=== PATIENT | male | born 1955 | race Caucasian/White ===

== ENCOUNTER 2019-11-01 07:59 | Emergency (ER) | payer OTHER ==
[~2019-11-01] VITALS: Ht 177.8 cm; Wt 81.8 kg
[2019-11-01] MEDS ORDERED: OLAN10TA6 PO ×2 (08:20)
[2019-11-01 08:41] LABS: BASOPHILS % (AUTO) 0.4 % (0.0-2.0); EOSINOPHILS % (AUTO) 0.2 % (1.0-6.0); HEMATOCRIT 40.6 % (41-53); HEMOGLOBIN 14.2 g/dL (13.5-17.5); LYMPHOCYTES # (AUTO) 1.4 K/uL (1.0-4.8); LYMPHOCYTES % (AUTO) 23.8 % (22.0-44.0); MEAN CORPUSCULAR HEMOGLOBIN 30.7 pg (26.0-34.0); MEAN CORPUSCULAR HGB CONC 34.8 G/dL (31.0-37.0); MEAN CORPUSCULAR VOLUME 88 fL (80-100); MONOCYTES # (AUTO) 0.5 K/uL (0.1-1.0); MONOCYTES % (AUTO) 8.1 % (2.0-9.0); NEUTROPHILS # (AUTO) 4.1 K/uL (1.8-7.7); NEUTROPHILS % (AUTO) 67.5 % (40.0-70.0); PLATELET COUNT (AUTO) 393 K/uL (150-450); RED BLOOD CELL COUNT(AUTO) 4.62 MIL/uL (4.50-5.90); RED CELL DISTRIBUTION WIDTH 12.9 % (11.5-14.5)
[2019-11-01 08:50] LABS: ANION GAP 8 mmol/L (8-16); CALCIUM, TOTAL 8.8 mg/dL (8.8-10.5); CARBON DIOXIDE 25 mmol/L (22-29); CHLORIDE 102 mmol/L (98-107); CREATININE 1.05 mg/dL (0.60-1.30); GLOMERULAR FILTR. RATE CALC > 60 mL/min (>60); GLUCOSE,RANDOM 121 mg/dL (70-110); POTASSIUM 3.9 mmol/L (3.5-5.1); SODIUM SERUM 135 mmol/L (136-145); UREA NITROGEN, BLOOD 18 mg/dL (7-18)
[2019-11-01 08:55] LABS: ALANINE AMINOTRANSFERASE 42 U/L (12-78); ALBUMIN 3.5 g/dL (3.4-5.0); ALKALINE PHOSPHATASE 78 U/L (46-116); ASPARTATE AMINOTRANSFERASE 19 U/L (15-37); BILIRUBIN,TOTAL 0.3 mg/dL (0.1-1.0); TOTAL PROTEIN, SERUM 7.6 g/dL (6.4-8.2)
[2019-11-01 09:06] LABS: AMPHET/METH SCREEN,URINE NEGATIVE (NEGATIVE); BARBITURATE SCREEN, URINE NEGATIVE (NEGATIVE); BENZODIAZEPINES SCREEN,URINE NEGATIVE (NEGATIVE); CANNABINOID SCREEN,URINE NEGATIVE (NEGATIVE); COCAINE SCREEN,URINE NEGATIVE (NEGATIVE); METHADONE SCREEN, URINE NEGATIVE (NEGATIVE); OPIATE SCREEN,URINE NEGATIVE (NEGATIVE); PHENCYCLIDINE SCREEN,URINE NEGATIVE (NEGATIVE)
[2019-11-01] MEDS ORDERED: OLANZapine 5 MG TABLET PO ONE (11:00)
[2019-11-01 12:01] VITALS: BP 148/64
== END 2019-11-01 12:53 | disposition home or self-care (01) ==
LOC: EMS 08:01
DX: F20.9 Schizophrenia, unspecified (principal); F31.9 Bipolar disorder, unspecified; Z79.899 Other long term (current) drug therapy
CPT/HCPCS: 36415; 80053; 80307; 85025; 99284; G0480

== ENCOUNTER 2020-01-11 11:41 | Inpatient (IN) | payer MEDICAID, OTHER ==
[~2020-01-11] VITALS: Ht 175.3 cm; Wt 93.0 kg
[~2020-01-11 11:41] MED LIST: OLAN10TA6 PO
[2020-01-11 12:05] LABS: BASOPHILS % (AUTO) 0.7 % (0.0-2.0); EOSINOPHILS % (AUTO) 1.3 % (1.0-6.0); HEMATOCRIT 43.6 % (41-53); HEMOGLOBIN 14.9 g/dL (13.5-17.5); LYMPHOCYTES # (AUTO) 1.6 K/uL (1.0-4.8); LYMPHOCYTES % (AUTO) 32.8 % (22.0-44.0); MEAN CORPUSCULAR HEMOGLOBIN 30.1 pg (26.0-34.0); MEAN CORPUSCULAR HGB CONC 34.1 G/dL (31.0-37.0); MEAN CORPUSCULAR VOLUME 88 fL (80-100); MONOCYTES # (AUTO) 0.5 K/uL (0.1-1.0); MONOCYTES % (AUTO) 9.6 % (2.0-9.0); NEUTROPHILS # (AUTO) 2.7 K/uL (1.8-7.7); NEUTROPHILS % (AUTO) 55.6 % (40.0-70.0); PLATELET COUNT (AUTO) 333 K/uL (150-450); RED BLOOD CELL COUNT(AUTO) 4.94 MIL/uL (4.50-5.90); RED CELL DISTRIBUTION WIDTH 13.3 % (11.5-14.5)
[2020-01-11 12:18] LABS: ANION GAP 8 mmol/L (8-16); CALCIUM, TOTAL 9.6 mg/dL (8.8-10.5); CARBON DIOXIDE 26 mmol/L (22-29); CHLORIDE 103 mmol/L (98-107); CREATININE 0.94 mg/dL (0.60-1.30); GLOMERULAR FILTR. RATE CALC > 60 mL/min (>60); GLUCOSE,RANDOM 107 mg/dL (70-110); POTASSIUM 4.2 mmol/L (3.5-5.1); SODIUM SERUM 137 mmol/L (136-145); UREA NITROGEN, BLOOD 9 mg/dL (7-18)
[2020-01-11 12:24] LABS: ALANINE AMINOTRANSFERASE 21 U/L (12-78); ALBUMIN 4.1 g/dL (3.4-5.0); ALKALINE PHOSPHATASE 64 U/L (46-116); ASPARTATE AMINOTRANSFERASE 13 U/L (15-37); BILIRUBIN,TOTAL 0.3 mg/dL (0.1-1.0); TOTAL PROTEIN, SERUM 7.9 g/dL (6.4-8.2)
[2020-01-11 13:08] LABS: APPEARANCE,URINE CLEAR (CLEAR); BILIRUBIN,URINE NEGATIVE (NEGATIVE); GLUCOSE, URINE (UA) NEGATIVE (NEGATIVE); KETONES,URINE NEGATIVE (NEGATIVE); LEUKOCYTE ESTERASE ,URINE NEGATIVE (NEGATIVE); NITRATE,URINE NEGATIVE (NEGATIVE); OCCULT BLOOD,URINE NEGATIVE (NEGATIVE); PROTEIN,URINE NEGATIVE (NEGATIVE); UROBILINOGEN,URINE 0.2 mg/dL (<=1.0)
[2020-01-11 13:16] LABS: AMPHET/METH SCREEN,URINE NEGATIVE (NEGATIVE); BARBITURATE SCREEN, URINE NEGATIVE (NEGATIVE); BENZODIAZEPINES SCREEN,URINE NEGATIVE (NEGATIVE); CANNABINOID SCREEN,URINE NEGATIVE (NEGATIVE); COCAINE SCREEN,URINE NEGATIVE (NEGATIVE); METHADONE SCREEN, URINE NEGATIVE (NEGATIVE); OPIATE SCREEN,URINE NEGATIVE (NEGATIVE); PHENCYCLIDINE SCREEN,URINE NEGATIVE (NEGATIVE)
[2020-01-11] MEDS ORDERED: LORazepam 1 MG TABLET PO ONE (14:45)
[2020-01-11] MEDS ORDERED: HALOPERIDOL 5 MG TABLET PO ONE (14:45)
[2020-01-11 18:48] VITALS: BP 130/65
[2020-01-11] MEDS ORDERED: INFLUENZA VIRUS VACCINE QVS 2019-20 (3YR+)/PF 60 MCG/0.5 ML SYRINGE IM ONE (19:30)
[2020-01-11] MEDS ORDERED: ONDANSETRON HCL 4 MG TABLET PO PRN (19:45)
[2020-01-11] MEDS ORDERED: MAG HYDROX/AL HYDROX/SIMETH ES 30 ML SUSPENSION UDCUP PO PRN (19:45)
[2020-01-11] MEDS ORDERED: LOPERAMIDE HCL 2 MG CAPSULE PO PRN (19:45)
[2020-01-11] MEDS ORDERED: IBUPROFEN 400 MG TABLET PO PRN (19:45)
[2020-01-11] MEDS ORDERED: NICOTINE 14 MG/24 HOUR PATCH TD PRN (19:45)
[2020-01-11] MEDS ORDERED: PETROLATUM,WHITE 28 GM JELLY TP PRN (19:45)
[2020-01-11] MEDS ORDERED: DOCUSATE SODIUM 100 MG CAPSULE PO PRN (19:45)
[2020-01-11] MEDS ORDERED: GuaiFENesin/D-METHORPHAN [SUGAR-FREE] 200-20MG/10 ML SYRUP UDCUP PO PRN (19:45)
[2020-01-11] MEDS ORDERED: CloNIDine HCL 0.1 MG TABLET PO PRN (19:45)
[2020-01-11] MEDS ORDERED: ALBUTEROL SULFATE HFA 90 MCG/PUFF 8 GM INHALER IH PRN (19:45)
[2020-01-11] MEDS ORDERED: ACETAMINOPHEN 325 MG TABLET PO PRN (19:45)
[2020-01-12 00:56] VITALS: BP 103/63
[2020-01-12 08:57] VITALS: BP 107/71
[2020-01-12] MEDS: MAGNESIUM HYDROXIDE SUSPENSION 30 ML UDCUP PO PRN (09:46)
[2020-01-12] MEDS: HALOPERIDOL 5 MG TABLET PO PRN ×2 (12:22→16:46)
[2020-01-12] MEDS: LORazepam 2 MG TABLET PO PRN (16:46)
[2020-01-12 16:53] VITALS: BP 108/77
[2020-01-12] MEDS: OLANZapine 10 MG TABLET PO SCH (20:02)
[2020-01-13 06:35] VITALS: BP 103/72
[2020-01-13 08:30] VITALS: BP 108/66
[2020-01-13] MEDS: OLANZapine 10 MG TABLET PO SCH ×2 (08:51→20:35)
[2020-01-13] MEDS: LORazepam 2 MG TABLET PO PRN (15:28)
[2020-01-13 15:37] VITALS: BP 107/69
[2020-01-13 16:29] VITALS: BP 107/69
[2020-01-14] MEDS: LORazepam 2 MG TABLET PO PRN ×2 (01:49→14:25)
[2020-01-14 01:56] VITALS: BP 107/80
[2020-01-14 08:41] VITALS: BP 100/69
[2020-01-14] MEDS: OLANZapine 10 MG TABLET PO SCH ×2 (09:10→21:02)
[2020-01-14] MEDS: HALOPERIDOL 5 MG TABLET PO PRN (14:25)
[2020-01-14 16:24] VITALS: BP 118/69
[2020-01-15 05:01] VITALS: BP 104/70
[2020-01-15 08:07] LABS: BASOPHILS % (AUTO) 0.6 % (0.0-2.0); EOSINOPHILS % (AUTO) 3.3 % (1.0-6.0); HEMATOCRIT 39.9 % (41-53); HEMOGLOBIN 13.4 g/dL (13.5-17.5); LYMPHOCYTES # (AUTO) 1.9 K/uL (1.0-4.8); LYMPHOCYTES % (AUTO) 46.6 % (22.0-44.0); MEAN CORPUSCULAR HEMOGLOBIN 29.9 pg (26.0-34.0); MEAN CORPUSCULAR HGB CONC 33.5 G/dL (31.0-37.0); MEAN CORPUSCULAR VOLUME 89 fL (80-100); MONOCYTES # (AUTO) 0.4 K/uL (0.1-1.0); MONOCYTES % (AUTO) 9.7 % (2.0-9.0); NEUTROPHILS # (AUTO) 1.6 K/uL (1.8-7.7); NEUTROPHILS % (AUTO) 39.8 % (40.0-70.0); PLATELET COUNT (AUTO) 316 K/uL (150-450); RED BLOOD CELL COUNT(AUTO) 4.48 MIL/uL (4.50-5.90); RED CELL DISTRIBUTION WIDTH 13.6 % (11.5-14.5)
[2020-01-15 08:16] VITALS: BP 124/64
[2020-01-15 08:17] LABS: HEMOGLOBIN A1C 5.5 % (3.8-5.6)
[2020-01-15 08:49] LABS: ALANINE AMINOTRANSFERASE 16 U/L (12-78); ALBUMIN 3.4 g/dL (3.4-5.0); ALKALINE PHOSPHATASE 53 U/L (46-116); ANION GAP 8 mmol/L (8-16); ASPARTATE AMINOTRANSFERASE 11 U/L (15-37); BILIRUBIN,TOTAL 0.2 mg/dL (0.1-1.0); CALCIUM, TOTAL 9.3 mg/dL (8.8-10.5); CARBON DIOXIDE 27 mmol/L (22-29); CHLORIDE 107 mmol/L (98-107); CHOL/HDL RATIO 5.1 (4.2-7.3); CHOLESTEROL 185 mg/dL (131-200); CREATININE 0.84 mg/dL (0.60-1.30); FREE T4 (FREE THYROXINE) 0.98 ng/dL (0.76-1.46); GLOMERULAR FILTR. RATE CALC > 60 mL/min (>60); GLUCOSE,RANDOM 89 mg/dL (70-110); HDL CHOLESTEROL 36 mg/dL (40-60); LDL CHOL (CALC.) 124 mg/dL (0-130); POTASSIUM 4.5 mmol/L (3.5-5.1); SODIUM SERUM 142 mmol/L (136-145); THYROID STIMULATING HORMONE 2.41 uIU/mL (0.36-3.74); TOTAL PROTEIN, SERUM 6.5 g/dL (6.4-8.2); TRIGLYCERIDES 124 mg/dL (15-150); UREA NITROGEN, BLOOD 11 mg/dL (7-18)
[2020-01-15] MEDS: OLANZapine 10 MG TABLET PO SCH ×2 (09:07→20:47)
[2020-01-15] MEDS: BuPROPion HCL XL 150 MG ER TABLET PO SCH (10:32)
[2020-01-15] MEDS: HALOPERIDOL 5 MG TABLET PO PRN (15:55)
[2020-01-15 16:24] VITALS: BP 116/73
[2020-01-16 05:36] VITALS: BP 117/77
[2020-01-16] MEDS: OLANZapine 10 MG TABLET PO SCH ×2 (08:14→20:09)
[2020-01-16] MEDS: BuPROPion HCL XL 150 MG ER TABLET PO SCH (08:15)
[2020-01-16 08:29] VITALS: BP 124/78
[2020-01-16] MEDS: HALOPERIDOL 5 MG TABLET PO PRN (11:41)
[2020-01-16 16:30] VITALS: BP 139/79
[2020-01-17] MEDS: OLANZapine 10 MG TABLET PO SCH ×2 (08:47→20:48)
[2020-01-17] MEDS: BuPROPion HCL XL 150 MG ER TABLET PO SCH (08:47)
[2020-01-17 08:50] VITALS: BP 119/71
[2020-01-17] MEDS: HALOPERIDOL 5 MG TABLET PO PRN (10:56)
[2020-01-17] MEDS: DIVALPROEX SODIUM 500 MG DR TABLET PO SCH ×2 (12:39→16:37)
[2020-01-17 16:42] VITALS: BP 116/84
[2020-01-18 00:46] VITALS: BP 115/63
[2020-01-18] MEDS: FERROUS SULFATE 325 MG EC TABLET PO SCH (06:42)
[2020-01-18] MEDS: BuPROPion HCL XL 150 MG ER TABLET PO SCH (08:18)
[2020-01-18] MEDS: DIVALPROEX SODIUM 500 MG DR TABLET PO SCH ×2 (08:18→17:08)
[2020-01-18] MEDS: OLANZapine 10 MG TABLET PO SCH ×2 (08:18→20:44)
[2020-01-18 09:00] VITALS: BP 106/60
[2020-01-18] MEDS: HALOPERIDOL 5 MG TABLET PO PRN (12:37)
[2020-01-18 16:20] VITALS: BP 111/72
[2020-01-19 06:23] VITALS: BP 110/64
[2020-01-19] MEDS: FERROUS SULFATE 325 MG EC TABLET PO SCH (06:57)
[2020-01-19] MEDS: BuPROPion HCL XL 150 MG ER TABLET PO SCH (08:57)
[2020-01-19] MEDS: OLANZapine 10 MG TABLET PO SCH ×2 (08:57→20:28)
[2020-01-19] MEDS: DIVALPROEX SODIUM 500 MG DR TABLET PO SCH ×2 (08:57→16:22)
[2020-01-19 09:02] VITALS: BP 104/60
[2020-01-19] MEDS: HALOPERIDOL 5 MG TABLET PO PRN (14:22)
[2020-01-19 17:27] VITALS: BP 105/68
[2020-01-20] MEDS: ZOLPIDEM TARTRATE 10 MG TABLET PO PRN (01:05)
[2020-01-20 01:26] VITALS: BP 109/71
[2020-01-20] MEDS: FERROUS SULFATE 325 MG EC TABLET PO SCH (07:12)
[2020-01-20] MEDS: OLANZapine 10 MG TABLET PO SCH ×2 (09:16→20:27)
[2020-01-20] MEDS: BuPROPion HCL XL 150 MG ER TABLET PO SCH (09:16)
[2020-01-20] MEDS: DIVALPROEX SODIUM 500 MG DR TABLET PO SCH ×2 (09:16→16:11)
[2020-01-20] MEDS: HALOPERIDOL 5 MG TABLET PO PRN (11:11)
[2020-01-20] MEDS: MAGNESIUM HYDROXIDE SUSPENSION 30 ML UDCUP PO PRN (11:11)
[2020-01-20 11:27] VITALS: BP 110/88
[2020-01-20 16:35] VITALS: BP 118/70
[2020-01-21] VITALS: BP 129/82
[2020-01-21] MEDS: ZOLPIDEM TARTRATE 10 MG TABLET PO PRN
[2020-01-21] MEDS: FERROUS SULFATE 325 MG EC TABLET PO SCH (06:41)
[2020-01-21 08:42] VITALS: BP 124/79
[2020-01-21] MEDS: OLANZapine 10 MG TABLET PO SCH ×2 (08:48→21:04)
[2020-01-21] MEDS: BuPROPion HCL XL 150 MG ER TABLET PO SCH (08:49)
[2020-01-21] MEDS: DIVALPROEX SODIUM 500 MG DR TABLET PO SCH ×2 (08:49→17:23)
[2020-01-21] MEDS: HALOPERIDOL 5 MG TABLET PO PRN (15:10)
[2020-01-21 16:37] VITALS: BP 129/71
[2020-01-22 00:47] VITALS: BP 102/64
[2020-01-22] MEDS: FERROUS SULFATE 325 MG EC TABLET PO SCH (06:59)
[2020-01-22 08:09] VITALS: BP 112/65
[2020-01-22] MEDS: BuPROPion HCL XL 150 MG ER TABLET PO SCH (08:36)
[2020-01-22] MEDS: OLANZapine 10 MG TABLET PO SCH ×2 (08:36→20:13)
[2020-01-22] MEDS: DIVALPROEX SODIUM 500 MG DR TABLET PO SCH ×2 (08:37→16:24)
[2020-01-22] MEDS: HALOPERIDOL 5 MG TABLET PO PRN (13:47)
[2020-01-22 16:07] VITALS: BP 112/69
[2020-01-22] MEDS: LORazepam 2 MG TABLET PO PRN (16:31)
[2020-01-22] MEDS: ZOLPIDEM TARTRATE 10 MG TABLET PO PRN (22:17)
[2020-01-23 00:16] VITALS: BP 128/66
[2020-01-23] MEDS: FERROUS SULFATE 325 MG EC TABLET PO SCH (06:43)
[2020-01-23] MEDS: OLANZapine 10 MG TABLET PO SCH ×2 (08:07→20:22)
[2020-01-23] MEDS: DIVALPROEX SODIUM 500 MG DR TABLET PO SCH ×2 (08:07→16:17)
[2020-01-23] MEDS: BuPROPion HCL XL 150 MG ER TABLET PO SCH (08:07)
[2020-01-23 08:09] VITALS: BP 133/70
[2020-01-23 16:52] VITALS: BP 124/83
[2020-01-23] MEDS: HALOPERIDOL 5 MG TABLET PO PRN (19:20)
[2020-01-24 00:58] VITALS: BP 115/77
[2020-01-24] MEDS: FERROUS SULFATE 325 MG EC TABLET PO SCH (06:48)
[2020-01-24 08:16] VITALS: BP 117/68
[2020-01-24] MEDS: BuPROPion HCL XL 150 MG ER TABLET PO SCH (08:47)
[2020-01-24] MEDS: DIVALPROEX SODIUM 500 MG DR TABLET PO SCH ×2 (08:48→16:33)
[2020-01-24] MEDS: OLANZapine 10 MG TABLET PO SCH ×2 (08:48→20:24)
[2020-01-24] MEDS: HALOPERIDOL 5 MG TABLET PO PRN (14:43)
[2020-01-24] MEDS ORDERED: TUBERCULIN, PURIFIED PROTEIN DERIVATIVE 5 TU/0.1 ML SYRINGE ID ONE (15:15)
[2020-01-24 16:14] VITALS: BP 115/57
[2020-01-24] MEDS: ZOLPIDEM TARTRATE 10 MG TABLET PO PRN (22:40)
[2020-01-25 01:18] VITALS: BP 133/86
[2020-01-25] MEDS: FERROUS SULFATE 325 MG EC TABLET PO SCH (06:53)
[2020-01-25 08:08] VITALS: BP 114/65
[2020-01-25] MEDS: OLANZapine 10 MG TABLET PO SCH ×2 (09:04→20:35)
[2020-01-25] MEDS: DIVALPROEX SODIUM 500 MG DR TABLET PO SCH ×2 (09:04→16:24)
[2020-01-25] MEDS: BuPROPion HCL XL 150 MG ER TABLET PO SCH (09:04)
[2020-01-25] MEDS: HALOPERIDOL 5 MG TABLET PO PRN (12:09)
[2020-01-25] MEDS ORDERED: PNEUMOCOCCAL VACCINE POLYVALENT 0.5 ML VIAL [PPSV23] IM ONE (15:00)
[2020-01-25] MEDS ORDERED: INFLUENZA VIRUS VACCINE QVS 2019-20 (3YR+)/PF 60 MCG/0.5 ML SYRINGE IM ONE (15:00)
[2020-01-25 16:10] VITALS: BP 139/85
[2020-01-26 00:27] VITALS: BP 120/83
[2020-01-26] MEDS: FERROUS SULFATE 325 MG EC TABLET PO SCH (06:43)
[2020-01-26 08:44] VITALS: BP 122/79
[2020-01-26] MEDS: BuPROPion HCL XL 150 MG ER TABLET PO SCH (09:04)
[2020-01-26] MEDS: DIVALPROEX SODIUM 500 MG DR TABLET PO SCH ×2 (09:05→16:52)
[2020-01-26] MEDS: OLANZapine 10 MG TABLET PO SCH ×2 (09:05→20:18)
[2020-01-26] MEDS: HALOPERIDOL 5 MG TABLET PO PRN (15:49)
[2020-01-26 16:17] VITALS: BP 118/64
[2020-01-27 00:54] VITALS: BP 117/76
[2020-01-27] MEDS: FERROUS SULFATE 325 MG EC TABLET PO SCH (06:36)
[2020-01-27] MEDS: DIVALPROEX SODIUM 500 MG DR TABLET PO SCH ×2 (08:26→16:03)
[2020-01-27] MEDS: BuPROPion HCL XL 150 MG ER TABLET PO SCH (08:26)
[2020-01-27] MEDS: OLANZapine 10 MG TABLET PO SCH ×2 (08:26→20:17)
[2020-01-27 08:41] VITALS: BP 117/63
[2020-01-27] MEDS: HALOPERIDOL 5 MG TABLET PO PRN (15:48)
[2020-01-27 16:07] VITALS: BP 119/71
[2020-01-28 00:04] VITALS: BP 110/72
[2020-01-28] MEDS: ZOLPIDEM TARTRATE 10 MG TABLET PO PRN ×2 (00:06→21:34)
[2020-01-28] MEDS: FERROUS SULFATE 325 MG EC TABLET PO SCH (06:17)
[2020-01-28 08:37] VITALS: BP 105/63
[2020-01-28] MEDS: DIVALPROEX SODIUM 500 MG DR TABLET PO SCH ×2 (08:43→17:08)
[2020-01-28] MEDS: BuPROPion HCL XL 150 MG ER TABLET PO SCH (08:43)
[2020-01-28] MEDS: OLANZapine 10 MG TABLET PO SCH ×2 (08:43→21:33)
[2020-01-28] MEDS: HALOPERIDOL 5 MG TABLET PO PRN (13:52)
[2020-01-28 16:12] VITALS: BP 113/75
[2020-01-29 00:30] VITALS: BP 102/66
[2020-01-29] MEDS: FERROUS SULFATE 325 MG EC TABLET PO SCH (06:58)
[2020-01-29 08:27] VITALS: BP 104/67
[2020-01-29] MEDS: DIVALPROEX SODIUM 500 MG DR TABLET PO SCH ×2 (08:38→17:24)
[2020-01-29] MEDS: BuPROPion HCL XL 150 MG ER TABLET PO SCH (08:38)
[2020-01-29] MEDS: OLANZapine 10 MG TABLET PO SCH ×2 (08:38→21:49)
[2020-01-29] MEDS: HALOPERIDOL 5 MG TABLET PO PRN (13:17)
[2020-01-29 16:06] VITALS: BP 122/81
[2020-01-30 00:41] VITALS: BP 106/83
[2020-01-30] MEDS: FERROUS SULFATE 325 MG EC TABLET PO SCH (06:56)
[2020-01-30 08:22] VITALS: BP 132/72
[2020-01-30] MEDS: BuPROPion HCL XL 150 MG ER TABLET PO SCH (08:27)
[2020-01-30] MEDS: OLANZapine 10 MG TABLET PO SCH ×2 (08:27→20:04)
[2020-01-30] MEDS: DIVALPROEX SODIUM 500 MG DR TABLET PO SCH ×2 (08:27→16:15)
[2020-01-30] MEDS: HALOPERIDOL 5 MG TABLET PO PRN (14:57)
[2020-01-30 16:19] VITALS: BP 111/70
[2020-01-31 00:27] VITALS: BP 116/90
[2020-01-31] MEDS: FERROUS SULFATE 325 MG EC TABLET PO SCH (06:32)
[2020-01-31 08:15] VITALS: BP 121/67
[2020-01-31] MEDS: BuPROPion HCL XL 150 MG ER TABLET PO SCH (08:24)
[2020-01-31] MEDS: DIVALPROEX SODIUM 500 MG DR TABLET PO SCH ×2 (08:25→16:12)
[2020-01-31] MEDS: OLANZapine 10 MG TABLET PO SCH ×2 (08:25→20:16)
[2020-01-31 08:56] LABS: BASOPHILS % (AUTO) 0.6 % (0.0-2.0); HEMATOCRIT 40.3 % (41-53); HEMOGLOBIN 13.7 g/dL (13.5-17.5); LYMPHOCYTES # (AUTO) 1.7 K/uL (1.0-4.8); LYMPHOCYTES % (AUTO) 33.4 % (22.0-44.0); MEAN CORPUSCULAR HEMOGLOBIN 30.3 pg (26.0-34.0); MEAN CORPUSCULAR VOLUME 89 fL (80-100); MONOCYTES # (AUTO) 0.8 K/uL (0.1-1.0); MONOCYTES % (AUTO) 14.8 % (2.0-9.0); NEUTROPHILS # (AUTO) 2.4 K/uL (1.8-7.7); NEUTROPHILS % (AUTO) 45.2 % (40.0-70.0); PLATELET COUNT (AUTO) 242 K/uL (150-450); RED BLOOD CELL COUNT(AUTO) 4.52 MIL/uL (4.50-5.90); RED CELL DISTRIBUTION WIDTH 13.5 % (11.5-14.5)
[2020-01-31] MEDS: HALOPERIDOL 5 MG TABLET PO PRN (14:49)
[2020-01-31 18:13] VITALS: BP 112/75
[2020-02-01 01:21] VITALS: BP 102/75
[2020-02-01] MEDS: FERROUS SULFATE 325 MG EC TABLET PO SCH (06:52)
[2020-02-01 08:17] VITALS: BP 116/63
[2020-02-01] MEDS: OLANZapine 10 MG TABLET PO SCH ×2 (08:51→20:07)
[2020-02-01] MEDS: DIVALPROEX SODIUM 500 MG DR TABLET PO SCH ×2 (08:51→16:42)
[2020-02-01] MEDS: BuPROPion HCL XL 150 MG ER TABLET PO SCH (08:51)
[2020-02-01 16:04] VITALS: BP 125/82
[2020-02-01] MEDS: HALOPERIDOL 5 MG TABLET PO PRN (19:00)
[2020-02-02 00:56] VITALS: BP 106/71
[2020-02-02] MEDS: FERROUS SULFATE 325 MG EC TABLET PO SCH (06:50)
[2020-02-02] MEDS: DIVALPROEX SODIUM 500 MG DR TABLET PO SCH ×2 (08:19→16:32)
[2020-02-02] MEDS: OLANZapine 10 MG TABLET PO SCH ×2 (08:19→20:15)
[2020-02-02] MEDS: BuPROPion HCL XL 150 MG ER TABLET PO SCH (08:19)
[2020-02-02 08:26] VITALS: BP 104/65
[2020-02-02 16:00] VITALS: BP 102/62
[2020-02-02] MEDS: HALOPERIDOL 5 MG TABLET PO PRN (16:03)
[2020-02-03 01:05] VITALS: BP 114/74
[2020-02-03] MEDS: FERROUS SULFATE 325 MG EC TABLET PO SCH (07:21)
[2020-02-03] MEDS: BuPROPion HCL XL 150 MG ER TABLET PO SCH (08:49)
[2020-02-03] MEDS: DIVALPROEX SODIUM 500 MG DR TABLET PO SCH ×2 (08:49→16:09)
[2020-02-03] MEDS: OLANZapine 10 MG TABLET PO SCH ×2 (08:49→20:09)
[2020-02-03 12:09] VITALS: BP 120/60
[2020-02-03] MEDS: HALOPERIDOL 5 MG TABLET PO PRN (16:09)
[2020-02-03 16:35] VITALS: BP 110/83
[2020-02-04 01:23] VITALS: BP 102/74
[2020-02-04] MEDS: FERROUS SULFATE 325 MG EC TABLET PO SCH (06:08)
[2020-02-04] MEDS: OLANZapine 10 MG TABLET PO SCH ×2 (08:10→20:01)
[2020-02-04] MEDS: DIVALPROEX SODIUM 500 MG DR TABLET PO SCH ×2 (08:10→16:48)
[2020-02-04] MEDS: BuPROPion HCL XL 150 MG ER TABLET PO SCH (08:10)
[2020-02-04 09:05] VITALS: BP 131/62
[2020-02-04] MEDS: HALOPERIDOL 5 MG TABLET PO PRN (14:05)
[2020-02-04 16:05] VITALS: BP 107/69
[2020-02-05 00:33] VITALS: BP 117/83
[2020-02-05] MEDS: FERROUS SULFATE 325 MG EC TABLET PO SCH (06:32)
[2020-02-05] MEDS: BuPROPion HCL XL 150 MG ER TABLET PO SCH (08:21)
[2020-02-05] MEDS: DIVALPROEX SODIUM 500 MG DR TABLET PO SCH ×2 (08:21→16:56)
[2020-02-05] MEDS: OLANZapine 10 MG TABLET PO SCH ×2 (08:21→20:04)
[2020-02-05 08:27] VITALS: BP 103/63
[2020-02-05] MEDS: HALOPERIDOL 5 MG TABLET PO PRN (14:14)
[2020-02-05 16:04] VITALS: BP 108/72
[2020-02-06 00:29] VITALS: BP 108/62
[2020-02-06] MEDS: FERROUS SULFATE 325 MG EC TABLET PO SCH (06:43)
[2020-02-06] MEDS: OLANZapine 10 MG TABLET PO SCH ×2 (08:32→21:01)
[2020-02-06] MEDS: DIVALPROEX SODIUM 500 MG DR TABLET PO SCH ×2 (08:32→16:35)
[2020-02-06] MEDS: BuPROPion HCL XL 150 MG ER TABLET PO SCH (08:33)
[2020-02-06 08:41] VITALS: BP 114/60
[2020-02-06 16:19] VITALS: BP 111/73
[2020-02-06] MEDS: MAGNESIUM HYDROXIDE SUSPENSION 30 ML UDCUP PO PRN (18:24)
[2020-02-07 00:12] VITALS: BP 116/63
[2020-02-07] MEDS: FERROUS SULFATE 325 MG EC TABLET PO SCH (06:53)
[2020-02-07] MEDS: DIVALPROEX SODIUM 500 MG DR TABLET PO SCH ×2 (08:34→16:38)
[2020-02-07] MEDS: BuPROPion HCL XL 150 MG ER TABLET PO SCH (08:34)
[2020-02-07] MEDS: OLANZapine 10 MG TABLET PO SCH ×2 (08:34→20:25)
[2020-02-07 09:29] VITALS: BP 114/68
[2020-02-07 16:01] VITALS: BP 114/72
[2020-02-08 00:05] VITALS: BP 136/84
[2020-02-08 04:31] VITALS: BP 136/84
[2020-02-08] MEDS: FERROUS SULFATE 325 MG EC TABLET PO SCH (06:54)
[2020-02-08 08:11] VITALS: BP 112/61
[2020-02-08] MEDS: DIVALPROEX SODIUM 500 MG DR TABLET PO SCH ×2 (08:28→16:02)
[2020-02-08] MEDS: BuPROPion HCL XL 150 MG ER TABLET PO SCH (08:29)
[2020-02-08] MEDS: OLANZapine 10 MG TABLET PO SCH ×2 (08:29→20:00)
[2020-02-08] MEDS: HALOPERIDOL 5 MG TABLET PO PRN (13:50)
[2020-02-08 16:52] VITALS: BP 130/81
[2020-02-09 03:22] VITALS: BP 115/80
[2020-02-09] MEDS: FERROUS SULFATE 325 MG EC TABLET PO SCH (06:46)
[2020-02-09 08:24] VITALS: BP 106/63
[2020-02-09] MEDS: BuPROPion HCL XL 150 MG ER TABLET PO SCH (08:56)
[2020-02-09] MEDS: OLANZapine 10 MG TABLET PO SCH ×2 (08:56→20:05)
[2020-02-09] MEDS: DIVALPROEX SODIUM 500 MG DR TABLET PO SCH ×2 (08:56→16:01)
[2020-02-09] MEDS: HALOPERIDOL 5 MG TABLET PO PRN (15:34)
[2020-02-09 16:05] VITALS: BP 122/69
[2020-02-10 02:15] VITALS: BP 120/71
[2020-02-10] MEDS: FERROUS SULFATE 325 MG EC TABLET PO SCH (06:33)
[2020-02-10 08:01] VITALS: BP 104/67
[2020-02-10] MEDS: OLANZapine 10 MG TABLET PO SCH ×2 (08:11→20:09)
[2020-02-10] MEDS: DIVALPROEX SODIUM 500 MG DR TABLET PO SCH ×2 (08:11→16:17)
[2020-02-10] MEDS: BuPROPion HCL XL 150 MG ER TABLET PO SCH (08:11)
[2020-02-10] MEDS: HALOPERIDOL 5 MG TABLET PO PRN (14:35)
[2020-02-10 16:04] VITALS: BP 111/76
[2020-02-10] MEDS: MAGNESIUM HYDROXIDE SUSPENSION 30 ML UDCUP PO PRN (16:17)
[2020-02-11] MEDS: FERROUS SULFATE 325 MG EC TABLET PO SCH (06:51)
[2020-02-11 08:23] VITALS: BP 102/61
[2020-02-11] MEDS: BuPROPion HCL XL 150 MG ER TABLET PO SCH (09:04)
[2020-02-11] MEDS: DIVALPROEX SODIUM 500 MG DR TABLET PO SCH ×2 (09:04→16:36)
[2020-02-11] MEDS: OLANZapine 10 MG TABLET PO SCH ×2 (09:06→20:41)
[2020-02-11 16:04] VITALS: BP 125/80
[2020-02-11] MEDS: HALOPERIDOL 5 MG TABLET PO PRN (19:10)
[2020-02-12 00:47] VITALS: BP 111/83
[2020-02-12] MEDS: FERROUS SULFATE 325 MG EC TABLET PO SCH (06:37)
[2020-02-12 08:12] VITALS: BP 118/71
[2020-02-12] MEDS: OLANZapine 10 MG TABLET PO SCH ×2 (08:40→20:03)
[2020-02-12] MEDS: BuPROPion HCL XL 150 MG ER TABLET PO SCH (08:41)
[2020-02-12] MEDS: DIVALPROEX SODIUM 500 MG DR TABLET PO SCH ×2 (08:41→16:02)
[2020-02-12] MEDS: HALOPERIDOL 5 MG TABLET PO PRN (15:10)
[2020-02-12 16:10] VITALS: BP 113/68
[2020-02-13 02:22] VITALS: BP 122/65
[2020-02-13] MEDS: FERROUS SULFATE 325 MG EC TABLET PO SCH (06:51)
[2020-02-13 08:13] VITALS: BP 102/69
[2020-02-13] MEDS: BuPROPion HCL XL 150 MG ER TABLET PO SCH (08:24)
[2020-02-13] MEDS: OLANZapine 10 MG TABLET PO SCH ×2 (08:24→20:01)
[2020-02-13] MEDS: DIVALPROEX SODIUM 500 MG DR TABLET PO SCH ×2 (08:24→16:39)
[2020-02-13 16:15] VITALS: BP 127/83
[2020-02-14 01:13] VITALS: BP 119/71
[2020-02-14] MEDS: FERROUS SULFATE 325 MG EC TABLET PO SCH (06:45)
[2020-02-14 08:06] VITALS: BP 110/67
[2020-02-14] MEDS: BuPROPion HCL XL 150 MG ER TABLET PO SCH (08:43)
[2020-02-14] MEDS: DIVALPROEX SODIUM 500 MG DR TABLET PO SCH ×2 (08:43→16:19)
[2020-02-14] MEDS: OLANZapine 10 MG TABLET PO SCH ×2 (08:43→20:05)
[2020-02-14] MEDS: HALOPERIDOL 5 MG TABLET PO PRN (14:08)
[2020-02-14 16:36] VITALS: BP 124/78
[2020-02-15 00:13] VITALS: BP 110/76
[2020-02-15] MEDS: FERROUS SULFATE 325 MG EC TABLET PO SCH (07:03)
[2020-02-15] MEDS: OLANZapine 10 MG TABLET PO SCH ×2 (08:25→20:13)
[2020-02-15] MEDS: BuPROPion HCL XL 150 MG ER TABLET PO SCH (08:25)
[2020-02-15] MEDS: DIVALPROEX SODIUM 500 MG DR TABLET PO SCH ×2 (08:25→16:21)
[2020-02-15 08:37] VITALS: BP 104/60
[2020-02-15 16:01] VITALS: BP 120/74
[2020-02-16] MEDS: FERROUS SULFATE 325 MG EC TABLET PO SCH (06:38)
[2020-02-16 08:37] VITALS: BP 100/77
[2020-02-16] MEDS: DIVALPROEX SODIUM 500 MG DR TABLET PO SCH ×2 (08:59→16:39)
[2020-02-16] MEDS: OLANZapine 10 MG TABLET PO SCH ×2 (08:59→20:13)
[2020-02-16] MEDS: BuPROPion HCL XL 150 MG ER TABLET PO SCH (08:59)
[2020-02-16 16:20] VITALS: BP 113/73
[2020-02-17 05:17] VITALS: BP 125/92
[2020-02-17] MEDS: FERROUS SULFATE 325 MG EC TABLET PO SCH (07:01)
[2020-02-17 08:05] VITALS: BP 101/60
[2020-02-17] MEDS: OLANZapine 10 MG TABLET PO SCH ×2 (08:49→20:21)
[2020-02-17] MEDS: BuPROPion HCL XL 150 MG ER TABLET PO SCH (08:49)
[2020-02-17] MEDS: DIVALPROEX SODIUM 500 MG DR TABLET PO SCH ×2 (08:49→16:36)
[2020-02-17 16:14] VITALS: BP 107/64
[2020-02-17] MEDS: HALOPERIDOL 5 MG TABLET PO PRN (18:01)
[2020-02-18 00:16] VITALS: BP 108/73
[2020-02-18] MEDS: FERROUS SULFATE 325 MG EC TABLET PO SCH (06:58)
[2020-02-18 08:40] VITALS: BP 130/76
[2020-02-18] MEDS: BuPROPion HCL XL 150 MG ER TABLET PO SCH (08:48)
[2020-02-18] MEDS: OLANZapine 10 MG TABLET PO SCH ×2 (08:49→20:34)
[2020-02-18] MEDS: DIVALPROEX SODIUM 500 MG DR TABLET PO SCH ×2 (08:50→17:32)
[2020-02-18 16:14] VITALS: BP 116/74
[2020-02-19 01:40] VITALS: BP 111/70
[2020-02-19] MEDS: FERROUS SULFATE 325 MG EC TABLET PO SCH (06:59)
[2020-02-19 08:05] VITALS: BP 110/66
[2020-02-19] MEDS: BuPROPion HCL XL 150 MG ER TABLET PO SCH (08:27)
[2020-02-19] MEDS: OLANZapine 10 MG TABLET PO SCH ×2 (08:27→20:22)
[2020-02-19] MEDS: DIVALPROEX SODIUM 500 MG DR TABLET PO SCH ×2 (08:27→16:21)
[2020-02-19] MEDS: HALOPERIDOL 5 MG TABLET PO PRN (14:22)
[2020-02-19 16:08] VITALS: BP 107/76
[2020-02-20 00:21] VITALS: BP 115/75
[2020-02-20] MEDS: FERROUS SULFATE 325 MG EC TABLET PO SCH (06:15)
[2020-02-20] MEDS: DIVALPROEX SODIUM 500 MG DR TABLET PO SCH ×2 (08:35→16:28)
[2020-02-20] MEDS: BuPROPion HCL XL 150 MG ER TABLET PO SCH (08:35)
[2020-02-20] MEDS: OLANZapine 10 MG TABLET PO SCH ×2 (08:35→20:17)
[2020-02-20 08:36] VITALS: BP_SYST 121; BP_SYST 95; BP_DIAS 63; BP_DIAS 71
[2020-02-20 09:42] VITALS: BP 108/65
[2020-02-20 16:09] VITALS: BP 105/64
[2020-02-21 00:23] VITALS: BP 104/69
[2020-02-21] MEDS: FERROUS SULFATE 325 MG EC TABLET PO SCH (06:15)
[2020-02-21 08:13] VITALS: BP 101/65
[2020-02-21] MEDS: BuPROPion HCL XL 150 MG ER TABLET PO SCH (08:27)
[2020-02-21] MEDS: OLANZapine 10 MG TABLET PO SCH ×2 (08:27→20:17)
[2020-02-21] MEDS: DIVALPROEX SODIUM 500 MG DR TABLET PO SCH ×2 (08:27→16:00)
[2020-02-21 16:03] VITALS: BP 112/76
[2020-02-22 03:39] VITALS: BP 106/67
[2020-02-22] MEDS: FERROUS SULFATE 325 MG EC TABLET PO SCH (06:39)
[2020-02-22] MEDS: DIVALPROEX SODIUM 500 MG DR TABLET PO SCH ×2 (08:07→16:26)
[2020-02-22] MEDS: BuPROPion HCL XL 150 MG ER TABLET PO SCH (08:07)
[2020-02-22] MEDS: OLANZapine 10 MG TABLET PO SCH ×2 (08:07→20:10)
[2020-02-22 16:01] VITALS: BP 121/83
[2020-02-23 00:16] VITALS: BP 118/82
[2020-02-23] MEDS: FERROUS SULFATE 325 MG EC TABLET PO SCH (06:42)
[2020-02-23 08:16] VITALS: BP 119/87
[2020-02-23] MEDS: DIVALPROEX SODIUM 500 MG DR TABLET PO SCH ×2 (08:23→16:00)
[2020-02-23] MEDS: OLANZapine 10 MG TABLET PO SCH ×2 (08:23→20:11)
[2020-02-23] MEDS: BuPROPion HCL XL 150 MG ER TABLET PO SCH (08:23)
[2020-02-23 16:05] VITALS: BP 109/72
[2020-02-24 00:31] VITALS: BP 111/70
[2020-02-24] MEDS: FERROUS SULFATE 325 MG EC TABLET PO SCH (06:03)
[2020-02-24 08:14] VITALS: BP 105/66
[2020-02-24] MEDS: DIVALPROEX SODIUM 500 MG DR TABLET PO SCH ×2 (09:20→16:25)
[2020-02-24] MEDS: BuPROPion HCL XL 150 MG ER TABLET PO SCH (09:20)
[2020-02-24] MEDS: OLANZapine 10 MG TABLET PO SCH ×2 (09:20→20:10)
[2020-02-24 16:31] VITALS: BP 124/82
[2020-02-25 00:49] VITALS: BP 101/71
[2020-02-25] MEDS: FERROUS SULFATE 325 MG EC TABLET PO SCH (06:07)
[2020-02-25 08:06] VITALS: BP 108/60
[2020-02-25] MEDS: BuPROPion HCL XL 150 MG ER TABLET PO SCH (08:36)
[2020-02-25] MEDS: OLANZapine 10 MG TABLET PO SCH ×2 (08:36→21:26)
[2020-02-25] MEDS: DIVALPROEX SODIUM 500 MG DR TABLET PO SCH ×2 (08:36→16:58)
[2020-02-25 16:23] VITALS: BP 102/73
[2020-02-25] MEDS: MAGNESIUM HYDROXIDE SUSPENSION 30 ML UDCUP PO PRN (16:24)
[2020-02-26 00:22] VITALS: BP 116/62
[2020-02-26] MEDS: FERROUS SULFATE 325 MG EC TABLET PO SCH (06:23)
[2020-02-26 08:16] VITALS: BP 133/84
[2020-02-26] MEDS: DIVALPROEX SODIUM 500 MG DR TABLET PO SCH ×2 (08:39→16:09)
[2020-02-26] MEDS: OLANZapine 10 MG TABLET PO SCH ×2 (08:40→21:18)
[2020-02-26] MEDS: BuPROPion HCL XL 150 MG ER TABLET PO SCH (08:40)
[2020-02-26] MEDS: HALOPERIDOL 5 MG TABLET PO PRN (13:35)
[2020-02-26 16:30] VITALS: BP 129/63
[2020-02-27 00:19] VITALS: BP 113/67
[2020-02-27] MEDS: FERROUS SULFATE 325 MG EC TABLET PO SCH (06:58)
[2020-02-27 08:14] VITALS: BP 138/69
[2020-02-27] MEDS: OLANZapine 10 MG TABLET PO SCH ×2 (09:09→20:47)
[2020-02-27] MEDS: BuPROPion HCL XL 150 MG ER TABLET PO SCH (09:09)
[2020-02-27] MEDS: DIVALPROEX SODIUM 250 MG ER TABLET PO SCH ×2 (09:09→16:52)
[2020-02-27 16:14] VITALS: BP 116/80
[2020-02-28 01:00] VITALS: BP 107/72
[2020-02-28] MEDS: FERROUS SULFATE 325 MG EC TABLET PO SCH (06:50)
[2020-02-28 08:20] VITALS: BP 111/63
[2020-02-28] MEDS: OLANZapine 10 MG TABLET PO SCH ×2 (08:45→20:54)
[2020-02-28] MEDS: BuPROPion HCL XL 150 MG ER TABLET PO SCH (08:45)
[2020-02-28] MEDS: DIVALPROEX SODIUM 250 MG ER TABLET PO SCH ×2 (08:46→16:21)
[2020-02-28 16:47] VITALS: BP 110/70
[2020-02-29 03:41] VITALS: BP 131/80
[2020-02-29] MEDS: FERROUS SULFATE 325 MG EC TABLET PO SCH (06:43)
[2020-02-29 08:10] VITALS: BP 102/60
[2020-02-29] MEDS: BuPROPion HCL XL 150 MG ER TABLET PO SCH (08:30)
[2020-02-29] MEDS: DIVALPROEX SODIUM 250 MG ER TABLET PO SCH ×2 (08:30→16:09)
[2020-02-29] MEDS: OLANZapine 10 MG TABLET PO SCH ×2 (08:30→20:01)
[2020-02-29] MEDS: HALOPERIDOL 5 MG TABLET PO PRN (13:31)
[2020-02-29 16:00] VITALS: BP 108/80
[2020-03-01 00:45] VITALS: BP 118/73
[2020-03-01] MEDS: FERROUS SULFATE 325 MG EC TABLET PO SCH (07:04)
[2020-03-01] MEDS: BuPROPion HCL XL 150 MG ER TABLET PO SCH (08:09)
[2020-03-01] MEDS: OLANZapine 10 MG TABLET PO SCH ×2 (08:09→20:10)
[2020-03-01] MEDS: DIVALPROEX SODIUM 250 MG ER TABLET PO SCH ×2 (08:09→16:16)
[2020-03-01 08:19] VITALS: BP 125/63
[2020-03-01 17:24] VITALS: BP 114/71
[2020-03-02 00:05] VITALS: BP 104/71
[2020-03-02] MEDS: FERROUS SULFATE 325 MG EC TABLET PO SCH (06:32)
[2020-03-02 08:05] VITALS: BP 101/61
[2020-03-02] MEDS: DIVALPROEX SODIUM 250 MG ER TABLET PO SCH ×2 (08:44→16:10)
[2020-03-02] MEDS: BuPROPion HCL XL 150 MG ER TABLET PO SCH (08:44)
[2020-03-02] MEDS: OLANZapine 10 MG TABLET PO SCH ×2 (08:44→20:15)
[2020-03-02] MEDS: HALOPERIDOL 5 MG TABLET PO PRN (18:57)
[2020-03-02 19:14] VITALS: BP 140/83
[2020-03-03 00:03] VITALS: BP 100/68
[2020-03-03] MEDS: FERROUS SULFATE 325 MG EC TABLET PO SCH (06:29)
[2020-03-03] MEDS: BuPROPion HCL XL 150 MG ER TABLET PO SCH (08:20)
[2020-03-03] MEDS: OLANZapine 10 MG TABLET PO SCH ×2 (08:20→20:54)
[2020-03-03] MEDS: DIVALPROEX SODIUM 250 MG ER TABLET PO SCH ×2 (08:21→17:20)
[2020-03-03 08:53] VITALS: BP 110/75
[2020-03-03 16:27] VITALS: BP 124/78
[2020-03-04 00:02] VITALS: BP 113/75
[2020-03-04] MEDS: FERROUS SULFATE 325 MG EC TABLET PO SCH (06:52)
[2020-03-04] MEDS: DIVALPROEX SODIUM 250 MG ER TABLET PO SCH ×2 (08:35→16:21)
[2020-03-04] MEDS: BuPROPion HCL XL 150 MG ER TABLET PO SCH (08:35)
[2020-03-04] MEDS: OLANZapine 10 MG TABLET PO SCH ×2 (08:36→20:18)
[2020-03-04 09:40] VITALS: BP 102/66
[2020-03-04 16:27] VITALS: BP 120/70
[2020-03-05 00:08] VITALS: BP 138/84
[2020-03-05] MEDS: FERROUS SULFATE 325 MG EC TABLET PO SCH (08:02)
[2020-03-05] MEDS: DIVALPROEX SODIUM 250 MG ER TABLET PO SCH ×2 (08:31→16:36)
[2020-03-05] MEDS: OLANZapine 10 MG TABLET PO SCH ×2 (08:31→20:13)
[2020-03-05] MEDS: BuPROPion HCL XL 150 MG ER TABLET PO SCH (08:31)
[2020-03-05 09:28] VITALS: BP 107/63
[2020-03-05 16:23] VITALS: BP 121/84
[2020-03-05] MEDS: HALOPERIDOL 5 MG TABLET PO PRN (17:58)
[2020-03-06 01:12] VITALS: BP 128/75
[2020-03-06] MEDS: FERROUS SULFATE 325 MG EC TABLET PO SCH (06:12)
[2020-03-06 08:03] VITALS: BP 115/87
[2020-03-06] MEDS: BuPROPion HCL XL 150 MG ER TABLET PO SCH (08:22)
[2020-03-06] MEDS: OLANZapine 10 MG TABLET PO SCH ×2 (08:22→20:26)
[2020-03-06] MEDS: DIVALPROEX SODIUM 250 MG ER TABLET PO SCH ×2 (08:22→15:56)
[2020-03-06] MEDS: HALOPERIDOL 5 MG TABLET PO PRN (15:56)
[2020-03-06 16:12] VITALS: BP 117/84
[2020-03-07 00:26] VITALS: BP 120/73
[2020-03-07] MEDS: FERROUS SULFATE 325 MG EC TABLET PO SCH (06:28)
[2020-03-07] MEDS: OLANZapine 10 MG TABLET PO SCH ×2 (08:30→20:18)
[2020-03-07] MEDS: DIVALPROEX SODIUM 250 MG ER TABLET PO SCH ×2 (08:30→16:04)
[2020-03-07] MEDS: BuPROPion HCL XL 150 MG ER TABLET PO SCH (08:30)
[2020-03-07 08:45] VITALS: BP 100/76
[2020-03-07] MEDS: HALOPERIDOL 5 MG TABLET PO PRN (15:27)
[2020-03-07] MEDS: MAGNESIUM HYDROXIDE SUSPENSION 30 ML UDCUP PO PRN (15:27)
[2020-03-07 16:31] VITALS: BP 126/76
[2020-03-08 03:15] VITALS: BP 106/77
[2020-03-08] MEDS: FERROUS SULFATE 325 MG EC TABLET PO SCH (06:24)
[2020-03-08 08:11] VITALS: BP 95/57
[2020-03-08] MEDS: DIVALPROEX SODIUM 250 MG ER TABLET PO SCH ×2 (08:30→16:05)
[2020-03-08] MEDS: OLANZapine 10 MG TABLET PO SCH ×2 (08:31→20:08)
[2020-03-08] MEDS: BuPROPion HCL XL 150 MG ER TABLET PO SCH (08:31)
[2020-03-08] MEDS: HALOPERIDOL 5 MG TABLET PO PRN (15:41)
[2020-03-08 16:06] VITALS: BP 133/82
[2020-03-09 01:52] VITALS: BP 115/81
[2020-03-09] MEDS: FERROUS SULFATE 325 MG EC TABLET PO SCH (06:21)
[2020-03-09 08:00] VITALS: BP 117/66
[2020-03-09] MEDS: OLANZapine 10 MG TABLET PO SCH ×2 (08:25→20:01)
[2020-03-09] MEDS: BuPROPion HCL XL 150 MG ER TABLET PO SCH (08:25)
[2020-03-09] MEDS: DIVALPROEX SODIUM 250 MG ER TABLET PO SCH ×2 (08:26→16:04)
[2020-03-09 16:06] VITALS: BP 143/85
[2020-03-10 04:47] VITALS: BP 119/80
[2020-03-10] MEDS: FERROUS SULFATE 325 MG EC TABLET PO SCH (06:41)
[2020-03-10] MEDS: BuPROPion HCL XL 150 MG ER TABLET PO SCH (08:47)
[2020-03-10] MEDS: DIVALPROEX SODIUM 250 MG ER TABLET PO SCH ×2 (08:47→16:23)
[2020-03-10] MEDS: OLANZapine 10 MG TABLET PO SCH ×2 (08:47→20:10)
[2020-03-10 09:45] VITALS: BP 103/71
[2020-03-10] MEDS: HALOPERIDOL 5 MG TABLET PO PRN (11:34)
[2020-03-10 16:16] VITALS: BP 115/77
[2020-03-11] VITALS: BP 108/88
[2020-03-11] MEDS: FERROUS SULFATE 325 MG EC TABLET PO SCH (07:05)
[2020-03-11 08:27] VITALS: BP 126/80
[2020-03-11] MEDS: DIVALPROEX SODIUM 250 MG ER TABLET PO SCH ×2 (08:31→16:26)
[2020-03-11] MEDS: OLANZapine 10 MG TABLET PO SCH ×2 (08:31→20:18)
[2020-03-11] MEDS: BuPROPion HCL XL 150 MG ER TABLET PO SCH (08:31)
[2020-03-11 16:23] VITALS: BP 102/61
[2020-03-12 00:12] VITALS: BP 132/78
[2020-03-12] MEDS: FERROUS SULFATE 325 MG EC TABLET PO SCH (06:07)
[2020-03-12] MEDS: DIVALPROEX SODIUM 250 MG ER TABLET PO SCH ×2 (08:07→16:09)
[2020-03-12] MEDS: BuPROPion HCL XL 150 MG ER TABLET PO SCH (08:07)
[2020-03-12] MEDS: OLANZapine 10 MG TABLET PO SCH ×2 (08:07→20:07)
[2020-03-12 08:15] VITALS: BP 101/64
[2020-03-12] MEDS ORDERED: GuaiFENesin/D-METHORPHAN [SUGAR-FREE] 200-20MG/10 ML SYRUP UDCUP PO PRN (11:30)
[2020-03-12] MEDS ORDERED: PETROLATUM,WHITE 28 GM JELLY TP PRN (11:30)
[2020-03-12] MEDS ORDERED: IBUPROFEN 400 MG TABLET PO PRN (11:30)
[2020-03-12] MEDS ORDERED: DOCUSATE SODIUM 100 MG CAPSULE PO PRN (11:30)
[2020-03-12] MEDS ORDERED: ACETAMINOPHEN 325 MG TABLET PO PRN (11:30)
[2020-03-12] MEDS ORDERED: ONDANSETRON HCL 4 MG TABLET PO PRN (11:30)
[2020-03-12] MEDS ORDERED: MAG HYDROX/AL HYDROX/SIMETH ES 30 ML SUSPENSION UDCUP PO PRN (11:30)
[2020-03-12] MEDS ORDERED: NICOTINE 14 MG/24 HOUR PATCH TD PRN (11:30)
[2020-03-12] MEDS ORDERED: CloNIDine HCL 0.1 MG TABLET PO PRN (11:30)
[2020-03-12] MEDS ORDERED: MAGNESIUM HYDROXIDE SUSPENSION 30 ML UDCUP PO PRN (11:30)
[2020-03-12] MEDS ORDERED: ALBUTEROL SULFATE HFA 90 MCG/PUFF 8 GM INHALER IH PRN (11:30)
[2020-03-12] MEDS ORDERED: LOPERAMIDE HCL 2 MG CAPSULE PO PRN (11:30)
[2020-03-12 16:15] VITALS: BP 107/84
[2020-03-13 00:37] VITALS: BP 117/82
[2020-03-13] MEDS: FERROUS SULFATE 325 MG EC TABLET PO SCH (06:54)
[2020-03-13] MEDS: DIVALPROEX SODIUM 250 MG ER TABLET PO SCH ×2 (08:13→16:23)
[2020-03-13] MEDS: BuPROPion HCL XL 150 MG ER TABLET PO SCH (08:13)
[2020-03-13] MEDS: OLANZapine 10 MG TABLET PO SCH ×2 (08:14→20:04)
[2020-03-13 08:15] VITALS: BP 104/58
[2020-03-13] MEDS: MAGNESIUM HYDROXIDE SUSPENSION 30 ML UDCUP PO PRN (15:56)
[2020-03-13 16:05] VITALS: BP 137/77
[2020-03-14 01:24] VITALS: BP 127/79
[2020-03-14] MEDS: FERROUS SULFATE 325 MG EC TABLET PO SCH (07:00)
[2020-03-14] MEDS: OLANZapine 10 MG TABLET PO SCH ×2 (08:41→20:08)
[2020-03-14] MEDS: DIVALPROEX SODIUM 250 MG ER TABLET PO SCH ×2 (08:41→16:47)
[2020-03-14] MEDS: BuPROPion HCL XL 150 MG ER TABLET PO SCH (08:41)
[2020-03-14 10:34] VITALS: BP 113/79
[2020-03-14 18:55] VITALS: BP 118/73
[2020-03-15 00:25] VITALS: BP 116/77
[2020-03-15] MEDS: FERROUS SULFATE 325 MG EC TABLET PO SCH (06:49)
[2020-03-15] MEDS: BuPROPion HCL XL 150 MG ER TABLET PO SCH (08:29)
[2020-03-15] MEDS: DIVALPROEX SODIUM 250 MG ER TABLET PO SCH ×2 (08:29→16:23)
[2020-03-15] MEDS: OLANZapine 10 MG TABLET PO SCH ×2 (08:29→20:06)
[2020-03-15 09:17] VITALS: BP_SYST 104; BP_SYST 98; BP_DIAS 65; BP_DIAS 70
[2020-03-15 16:15] VITALS: BP 101/81
[2020-03-16 01:47] VITALS: BP 108/72
[2020-03-16] MEDS: FERROUS SULFATE 325 MG EC TABLET PO SCH (06:18)
[2020-03-16 08:06] VITALS: BP 112/76
[2020-03-16] MEDS: BuPROPion HCL XL 150 MG ER TABLET PO SCH (08:22)
[2020-03-16] MEDS: OLANZapine 10 MG TABLET PO SCH ×2 (08:22→20:05)
[2020-03-16] MEDS: DIVALPROEX SODIUM 250 MG ER TABLET PO SCH ×2 (08:22→16:16)
[2020-03-16 16:00] VITALS: BP 104/64
[2020-03-17 00:48] VITALS: BP 103/66
[2020-03-17] MEDS: FERROUS SULFATE 325 MG EC TABLET PO SCH (06:54)
[2020-03-17] MEDS: BuPROPion HCL XL 150 MG ER TABLET PO SCH (08:09)
[2020-03-17] MEDS: OLANZapine 10 MG TABLET PO SCH ×2 (08:09→20:11)
[2020-03-17] MEDS: DIVALPROEX SODIUM 250 MG ER TABLET PO SCH ×2 (08:10→16:10)
[2020-03-17 08:22] VITALS: BP 107/70
[2020-03-17] MEDS: HALOPERIDOL 5 MG TABLET PO PRN (12:16)
[2020-03-17 17:12] VITALS: BP 125/78
[2020-03-18 00:53] VITALS: BP 101/69
[2020-03-18] MEDS: FERROUS SULFATE 325 MG EC TABLET PO SCH (06:52)
[2020-03-18] MEDS: DIVALPROEX SODIUM 250 MG ER TABLET PO SCH ×2 (08:19→17:05)
[2020-03-18] MEDS: OLANZapine 10 MG TABLET PO SCH ×2 (08:21→21:14)
[2020-03-18] MEDS: BuPROPion HCL XL 150 MG ER TABLET PO SCH (08:22)
[2020-03-18 08:43] VITALS: BP 117/74
[2020-03-18 16:16] VITALS: BP 111/72
[2020-03-19 01:21] VITALS: BP 108/73
[2020-03-19] MEDS: FERROUS SULFATE 325 MG EC TABLET PO SCH (06:42)
[2020-03-19 08:06] VITALS: BP 100/65
[2020-03-19] MEDS: OLANZapine 10 MG TABLET PO SCH ×2 (08:26→20:11)
[2020-03-19] MEDS: DIVALPROEX SODIUM 250 MG ER TABLET PO SCH ×2 (08:26→16:29)
[2020-03-19] MEDS: BuPROPion HCL XL 150 MG ER TABLET PO SCH (08:26)
[2020-03-19] MEDS: HALOPERIDOL 5 MG TABLET PO PRN (15:57)
[2020-03-19 16:05] VITALS: BP 129/85
[2020-03-20 01:03] VITALS: BP 111/80
[2020-03-20] MEDS: FERROUS SULFATE 325 MG EC TABLET PO SCH (06:40)
[2020-03-20 08:26] VITALS: BP 113/74
[2020-03-20] MEDS: OLANZapine 10 MG TABLET PO SCH ×2 (08:47→20:10)
[2020-03-20] MEDS: BuPROPion HCL XL 150 MG ER TABLET PO SCH (08:47)
[2020-03-20] MEDS: DIVALPROEX SODIUM 250 MG ER TABLET PO SCH ×2 (08:47→16:17)
[2020-03-20] MEDS: HALOPERIDOL 5 MG TABLET PO PRN (15:35)
[2020-03-20 16:05] VITALS: BP 114/81
[2020-03-21 00:09] VITALS: BP 109/80
[2020-03-21] MEDS: FERROUS SULFATE 325 MG EC TABLET PO SCH (06:39)
[2020-03-21 08:12] VITALS: BP 101/60
[2020-03-21] MEDS: DIVALPROEX SODIUM 250 MG ER TABLET PO SCH ×2 (08:36→16:32)
[2020-03-21] MEDS: BuPROPion HCL XL 150 MG ER TABLET PO SCH (08:36)
[2020-03-21] MEDS: OLANZapine 10 MG TABLET PO SCH ×2 (08:36→20:01)
[2020-03-21 16:14] VITALS: BP 106/67
[2020-03-22 00:49] VITALS: BP 111/78
[2020-03-22] MEDS: FERROUS SULFATE 325 MG EC TABLET PO SCH (06:31)
[2020-03-22 08:14] VITALS: BP 114/76
[2020-03-22] MEDS: DIVALPROEX SODIUM 250 MG ER TABLET PO SCH ×2 (09:38→16:46)
[2020-03-22] MEDS: BuPROPion HCL XL 150 MG ER TABLET PO SCH (09:38)
[2020-03-22] MEDS: OLANZapine 10 MG TABLET PO SCH ×2 (09:39→20:19)
[2020-03-22 16:06] VITALS: BP 102/68
[2020-03-23 01:06] VITALS: BP 116/80
[2020-03-23] MEDS: FERROUS SULFATE 325 MG EC TABLET PO SCH (06:49)
[2020-03-23] MEDS: OLANZapine 10 MG TABLET PO SCH ×2 (08:22→20:01)
[2020-03-23] MEDS: DIVALPROEX SODIUM 250 MG ER TABLET PO SCH ×2 (08:22→16:21)
[2020-03-23] MEDS: BuPROPion HCL XL 150 MG ER TABLET PO SCH (08:22)
[2020-03-23 08:42] VITALS: BP 110/73
[2020-03-23 16:41] VITALS: BP 100/70
[2020-03-24 03:08] VITALS: BP 115/65
[2020-03-24] MEDS: FERROUS SULFATE 325 MG EC TABLET PO SCH (06:46)
[2020-03-24] MEDS: DIVALPROEX SODIUM 250 MG ER TABLET PO SCH ×2 (08:01→16:24)
[2020-03-24] MEDS: BuPROPion HCL XL 150 MG ER TABLET PO SCH (08:02)
[2020-03-24] MEDS: OLANZapine 10 MG TABLET PO SCH ×2 (08:02→20:09)
[2020-03-24 08:24] VITALS: BP 119/67
[2020-03-24 16:06] VITALS: BP 112/74
[2020-03-25 00:25] VITALS: BP 113/82
[2020-03-25] MEDS: FERROUS SULFATE 325 MG EC TABLET PO SCH (07:14)
[2020-03-25 08:02] VITALS: BP 96/59
[2020-03-25] MEDS: DIVALPROEX SODIUM 250 MG ER TABLET PO SCH ×2 (08:25→16:14)
[2020-03-25] MEDS: BuPROPion HCL XL 150 MG ER TABLET PO SCH (08:25)
[2020-03-25] MEDS: OLANZapine 10 MG TABLET PO SCH ×2 (08:26→20:13)
[2020-03-25 16:05] VITALS: BP 106/73
[2020-03-26 01:02] VITALS: BP 105/67
[2020-03-26] MEDS: FERROUS SULFATE 325 MG EC TABLET PO SCH (06:39)
[2020-03-26] MEDS: OLANZapine 10 MG TABLET PO SCH (08:19)
[2020-03-26] MEDS: DIVALPROEX SODIUM 250 MG ER TABLET PO SCH (08:19)
[2020-03-26] MEDS: BuPROPion HCL XL 150 MG ER TABLET PO SCH (08:19)
[2020-03-26] MEDS ORDERED: DIVA250T45 PO (08:54)
[2020-03-26] MEDS ORDERED: OLAN7.5T2 PO (08:54)
[2020-03-26] MEDS ORDERED: BUPR-93 PO (08:54)
[2020-03-26] MEDS ORDERED: FERR-89 PO (08:58)
== END 2020-03-26 10:25 | DRG 750 ==
LOC: EMS 11:42 → B2S 16:29
PROVIDERS: ADMIT Psychiatry & Neurology Psychiatry; ATTEND Psychiatry & Neurology Psychiatry
DX: F25.1 Schizoaffective disorder, depressive type (principal); R45.851 Suicidal ideations; Z59.0 Homelessness; R10.13 Epigastric pain; D64.9 Anemia, unspecified; D72.819 Decreased white blood cell count, unspecified; F31.9 Bipolar disorder, unspecified; I10 Essential (primary) hypertension
CPT/HCPCS: 83036; 84439; 84443; 90686; G0480

== ENCOUNTER 2021-11-19 17:10 | Emergency (ER) | payer MEDICARE, OTHER ==
[~2021-11-19] VITALS: Ht 177.8 cm; Wt 81.8 kg
[~2021-11-19 17:10] MED LIST changes: +BUPR-93 PO; +DIVA-85 PO; +FERR-89 PO; -OLAN10TA6 PO; +OLAN7.5T22 PO
[2021-11-19 18:40] LABS: BASOPHILS % (AUTO) 0.9 % (0.0-2.0); EOSINOPHILS % (AUTO) 3.7 % (1.0-6.0); HEMATOCRIT 38.4 % (41-53); HEMOGLOBIN 13.2 g/dL (13.5-17.5); LYMPHOCYTES # (AUTO) 2.1 K/uL (1.0-4.8); LYMPHOCYTES % (AUTO) 41.8 % (22.0-44.0); MEAN CORPUSCULAR HEMOGLOBIN 31.1 pg (26.0-34.0); MEAN CORPUSCULAR HGB CONC 34.5 G/dL (31.0-37.0); MEAN CORPUSCULAR VOLUME 90 fL (80-100); MONOCYTES # (AUTO) 0.4 K/uL (0.1-1.0); MONOCYTES % (AUTO) 7.5 % (2.0-9.0); NEUTROPHILS # (AUTO) 2.3 K/uL (1.8-7.7); NEUTROPHILS % (AUTO) 46.1 % (40.0-70.0); PLATELET COUNT (AUTO) 320 K/uL (150-450); RED BLOOD CELL COUNT(AUTO) 4.26 MIL/uL (4.50-5.90); RED CELL DISTRIBUTION WIDTH 12.5 % (11.5-14.5)
[2021-11-19 18:54] LABS: COVID AG,FIA SOURCE NASOPHARYNGEAL
[2021-11-19 19:12] LABS: ANION GAP 7 mmol/L (8-16); CALCIUM, TOTAL 8.9 mg/dL (8.8-10.5); CARBON DIOXIDE 25 mmol/L (22-29); CHLORIDE 106 mmol/L (98-107); CREATININE 0.74 mg/dL (0.60-1.30); GLOMERULAR FILTR. RATE CALC > 60 mL/min (>60); GLUCOSE,RANDOM 96 mg/dL (70-110); POTASSIUM 3.7 mmol/L (3.5-5.1); SODIUM SERUM 138 mmol/L (136-145); UREA NITROGEN, BLOOD 7 mg/dL (7-18)
[2021-11-19 19:18] LABS: ALANINE AMINOTRANSFERASE 14 U/L (12-78); ALBUMIN 3.6 g/dL (3.4-5.0); ALKALINE PHOSPHATASE 88 U/L (46-116); ASPARTATE AMINOTRANSFERASE 6 U/L (15-37); BILIRUBIN,TOTAL 0.3 mg/dL (0.1-1.0); CREATINE KINASE, TOTAL ONLY 36 U/L (39-308); TOTAL PROTEIN, SERUM 7.2 g/dL (6.4-8.2)
[2021-11-19 19:21] LABS: VALPROIC ACID < 3 mcg/mL (50-100)
[2021-11-19] MEDS ORDERED: IBUPROFEN 600 MG TABLET PO ONE (20:45)
[2021-11-19 23:43] VITALS: BP 142/93
[2021-11-19 23:54] LABS: APPEARANCE,URINE CLEAR (CLEAR); BILIRUBIN,URINE N (NEGATIVE); GLUCOSE, URINE (UA) NEGATIVE (NEGATIVE); OCCULT BLOOD,URINE NEGATIVE (NEGATIVE); PH,URINE 7.5 (5.0-8.0); PROTEIN,URINE NEGATIVE (NEGATIVE)
[2021-11-19 23:55] LABS: KETONES,URINE NEGATIVE (NEGATIVE); LEUKOCYTE ESTERASE ,URINE NEGATIVE (NEGATIVE); NITRATE,URINE NEGATIVE (NEGATIVE); UROBILINOGEN,URINE 0.2 mg/dL (<=1.0)
[2021-11-19 23:57] LABS: AMPHET/METH SCREEN,URINE NEGATIVE (NEGATIVE); BARBITURATE SCREEN, URINE NEGATIVE (NEGATIVE); BENZODIAZEPINES SCREEN,URINE NEGATIVE (NEGATIVE); CANNABINOID SCREEN,URINE NEGATIVE (NEGATIVE); COCAINE SCREEN,URINE NEGATIVE (NEGATIVE); METHADONE SCREEN, URINE NEGATIVE (NEGATIVE); OPIATE SCREEN,URINE NEGATIVE (NEGATIVE)
[2021-11-19 23:58] LABS: PHENCYCLIDINE SCREEN,URINE NEGATIVE (NEGATIVE)
== END 2021-11-20 01:06 | disposition home or self-care (01) ==
LOC: EMS 18:08
DX: S62.611A Displaced fracture of proximal phalanx of left index finger, initial encounter for closed fracture (principal); S62.617A Displaced fracture of proximal phalanx of left little finger, initial encounter for closed fracture; S62.305A Unspecified fracture of fourth metacarpal bone, left hand, initial encounter for closed fracture; W18.39XA Other fall on same level, initial encounter; Y93.89 Activity, other specified; Y92.89 Other specified places as the place of occurrence of the external cause; Y99.8 Other external cause status; R29.6 Repeated falls; F25.9 Schizoaffective disorder, unspecified; F31.9 Bipolar disorder, unspecified; Z20.822 Contact with and (suspected) exposure to COVID-19
CPT/HCPCS: 70450; 71045; 80053; 80164; 81003; 82550; 84484; 85025; 85610; 85730; 93005; 99285; 36415-L1; 36415-TC